=== PATIENT | female | born 1935 | race Caucasian/White ===

== ENCOUNTER 2016-12-24 12:02 | Emergency (ER) | payer OTHER ==
[~2016-12-24] VITALS: Ht 154.9 cm; Wt 84.1 kg
[~2016-12-24 12:02] MED LIST: ASCO500T16 PO; ASPEC325 PO; B-COTAB18 PO; CALCCHW PO; CITA20TA4 PO; HYDC25 PO; LEVO125T72 PO; LOSA1TAB38 PO; METO25TA56 PO; MULT-614 PO; NRV5 PO; OMEG10007 PO; PLV75 PO; PRAV40TA2 PO; PTDOPS OPB; TYLOTC500 PO; ULT50HP PO; VITAMIN E 100 UNIT PO; XNX25 PO
[2016-12-24 12:05] VITALS: TEMP 36.9; Ht 154.9 cm; Wt 84.1 kg
--- NOTE | 2016-12-24 12:20 | EMERGENCY ROOM VISIT NOTE ---
History Report prepared by Sarthak: Dxiie Villavicencio Under the Supervision of: Dr. Lee Mcnamara M.D. First contact with patient: 12:11 Chief Complaint: FALL Stated Complaint: WEAK/SLID TO FLOOR History of Present Illness The patient is a 81 year old female who presents to the Emergency Room for evaluation following a fall that occurred just prior to arrival. The patient states that she was sitting on her bed getting dressed when she fell to the ground. She denies LOC or head injury. The patient lives with her daughter who was home at the time of the fall. EMS was called due to the patient's daughter being unable to pull her up off the ground. The patient states that she was not laying on the floor for a long time. The patient denies abdominal pain, urinary symptoms, blood in urine, stroke like symptoms, or generalized pain. The patient has not fallen recently. Source of History: patient, family Onset: just GENERAL OFFICE ASSISTANT Position: other (global) Quality: other (fall injuries) Timing: constant Associated Symptoms: No LOC, No abdominal pain, No urinary symptoms Review of Systems See HPI for pertinent positives & negatives. A total of 10 systems reviewed and were otherwise negative. Past Medical & Surgical Medical Problems: (1) Stroke Old medical records were reviewed. Nurse's notes were reviewed and I agree with. Renal insufficiency dementia Family History Patient reports no known family medical history. Social History Smoking Status: Current Every Day Smoker Marital Status: Housing Status: lives with family Occupation Status: retired Current/Historical Medications Scheduled Alprazolam (Xanax), 0.25 MG PO BID Amlodipine Besylate (Amlodipine Besylate), 10 MG PO DAILY Ascorbic Acid (Ascorbic Acid), 1,000 MG PO DAILY B-Complex Vitamins (Vitamin B Complex), 1 TAB PO DAILY Calcium Carbonate-Vitamin D W/ (Caltrate 600+D Plus), 1 DOSE PO DAILY Citalopram Hydrobromide (Citalopram Hydrobromide), 20 MG PO DAILY Clopidogrel (Plavix), 75 MG PO DAILY Fish Oil (Geary-3), 1 CAP PO DAILY Hydrochlorothiazide (Hctz), 25 MG PO DAILY Levothyroxine Sodium (Synthroid), 125 MCG PO DAILY Losartan Potassium (Cozaar), 100 MG PO QPM Metoprolol Tartrate (Lopressor) (Lopressor), 25 MG PO BID Multiple Vitamins W/ Minerals (Centrum Silver Ultra Wome), 1 TAB PO DAILY Olopatadine Hydrochloride (Pataday), 1 DROP OPB QAM Pravastatin Sodium (Pravastatin Sodium), 40 MG PO HS Allergies Coded Allergies: Sulfamethoxazole w/Trimethoprim (Verified Allergy, Mild, RASH, 12/24/16) Amoxicillin (Unverified Allergy, Unknown, rash, 12/24/16) Buspirone (Unverified Allergy, Unknown, unk, 12/24/16) Physical Exam Vital Signs Date Time Temp Pulse Resp B/P (MAP) Pulse Ox O2 Delivery O2 Flow Rate FiO2 12/24/16 15:07 63 25 12/24/16 15:02 141/56 12/24/16 14:37 69 17 12/24/16 14:07 62 15 98 12/24/16 14:04 94 Nasal Cannula 2.0 12/24/16 14:02 168/85 12/24/16 13:42 148/77 12/24/16 13:11 95 Nasal Cannula 2.0 12/24/16 13:07 64 88 12/24/16 13:07 66 17 89 12/24/16 13:02 68 17 179/87 90 12/24/16 12:32 63 16 162/78 90 12/24/16 12:21 65 12/24/16 12:06 165/79 12/24/16 12:05 36.9 63 18 165/79 92 Room Air Physical Exam General: Well developed well nourished in no acute distress non ill appearing older female, breathing comfortably on room air. Normal speech HEENT: Normal cephalic atraumatic. Pupils are equal round and reactive to light. Extraocular movements are intact. Oropharynx is pink with moist mucous membranes. No swelling of the mouth lips or tongue. Neck: Supple with a midline trachea. No meningeal signs or stiffness, no JVD or bruits. No Stridor. Chest: Clear to auscultation bilaterally. No wheezes or rhonchi. No increased work of breathing. Heart: regular rate and rhythm. Abdomen: Soft nontender, nondistended without rebound guarding or rigidity. Extremities: No cyanosis clubbing or edema. No calf tenderness or assymetry Spine/Back. Non tender to palpation. No CVA tenderness Skin: Good turgor without rashes. Neurologic exam: Cranial nerves two through 12 are intact. Motor and sensation are intact and symmetrical throughout. Medical Decision & Procedures ER Provider Diagnostic Interpretation: Radiology results as stated below per my review and radiologist interpretation: CT OF THE HEAD WITHOUT CONTRAST CLINICAL HISTORY: Fall. COMPARISON STUDY: Head CT January 15, 2014. CT DOSE: 537.48 mGy.cm TECHNIQUE: Helical axial images of the head were obtained without IV contrast. Automated exposure control was utilized for the study. FINDINGS: No acute intracranial hemorrhage, midline shift or mass effect is present. Ventricular system is stable. Basilar cisterns are patent. There are no extra axial collections. Extensive white matter hypodensity suggests small vessel disease. There may be old lacunar infarcts. There are no findings to suggest acute dural sinus thrombosis or acute territorial infarct. There is bilateral basal ganglia calcification. There is no calvarial fracture. There is mild mucosal thickening of the ethmoid sinuses. IMPRESSION: 1. No acute intracranial findings. 2. No calvarial fracture. Electronically signed by: Tanner Maravilla M.D. 12/24/2016 1:31 PM Dictated Date/Time: 12/24/2016 1:29 PM CHEST ONE VIEW PORTABLE CLINICAL HISTORY: Chest pain. Weakness. COMPARISON STUDY: Chest radiograph January 15, 2014. FINDINGS: There are cholecystectomy clips. Mild elevation of the right hemidiaphragm is unchanged. Right basilar opacity suggests atelectasis. There is no evidence of pulmonary edema. Cardiomegaly is unchanged. There is extensive mitral annular calcification. IMPRESSION: No acute cardiopulmonary findings. No significant change in appearance of the chest. Electronically signed by: Tanner Maravilla M.D. 12/24/2016 1:32 PM Dictated Date/Time: 12/24/2016 1:31 PM Laboratory Results 12/24/16 12:30 Red Blood Count 3.89, Mean Corpuscular Volume 99.0, Mean Corpuscular Hemoglobin 33.2, Mean Corpuscular Hemoglobin Concent 33.5, Mean Platelet Volume 9.4, Neutrophils (%) (Auto) 66.2, Lymphocytes (%) (Auto) 22.1, Monocytes (%) (Auto) 8.4, Eosinophils (%) (Auto) 2.8, Basophils (%) (Auto) 0.2, Neutrophils # (Auto) 5.73, Lymphocytes # (Auto) 1.92, Monocytes # (Auto) 0.73, Eosinophils # (Auto) 0.24, Basophils # (Auto) 0.02 12/24/16 12:30 Test 12/24/16 12:30 12/24/16 12:39 12/24/16 12:50 White Blood Count 8.67 K/uL (4.8-10.8) Red Blood Count 3.89 M/uL (4.2-5.4) Hemoglobin 12.9 g/dL (12.0-16.0) Hematocrit 38.5 % (37-47) Mean Corpuscular Volume 99.0 fL (80-100) Mean Corpuscular Hemoglobin 33.2 pg (25-34) Mean Corpuscular Hemoglobin Concent 33.5 g/dl (32-36) Platelet Count 349 K/uL (130-400) Mean Platelet Volume 9.4 fL (7.4-10.4) Neutrophils (%) (Auto) 66.2 % Lymphocytes (%) (Auto) 22.1 % Monocytes (%) (Auto) 8.4 % Eosinophils (%) (Auto) 2.8 % Basophils (%) (Auto) 0.2 % Neutrophils # (Auto) 5.73 K/uL (1.4-6.5) Lymphocytes # (Auto) 1.92 K/uL (1.2-3.4) Monocytes # (Auto) 0.73 K/uL (0.11-0.59) Eosinophils # (Auto) 0.24 K/uL (0-0.5) Basophils # (Auto) 0.02 K/uL (0-0.2) RDW Standard Deviation 56.6 fL (36.4-46.3) RDW Coefficient of Variation 15.7 % (11.5-14.5) Immature Granulocyte % (Auto) 0.3 % Immature Granulocyte # (Auto) 0.03 K/uL (0.00-0.02) Anion Gap 6.0 mmol/L (3-11) Est Creatinine Clear Calc Drug Dose 32.8 ml/min Estimated GFR () 44.2 Estimated GFR (Non- 38.2 BUN/Creatinine Ratio 21.9 (10-20) Calcium Level 9.5 mg/dl (8.5-10.1) Total Bilirubin 0.5 mg/dl (0.2-1) Direct Bilirubin 0.1 mg/dl (0-0.2) Aspartate Amino Transf (AST/SGOT) 40 U/L (15-37) Alanine Aminotransferase (ALT/SGPT) 32 U/L (12-78) Alkaline Phosphatase 85 U/L (45-117) Total Creatine Kinase 88 U/L (26-192) Creatine Kinase MB 1.5 ng/ml (0.5-3.6) Creatine Kinase MB Ratio 1.7 (0-3.0) Total Protein 7.4 gm/dl (6.4-8.2) Albumin 3.7 gm/dl (3.4-5.0) Lipase 178 U/L (73-393) Bedside Troponin I 0.010 ng/ml (0-0.045) Urine Color DK YELLOW Urine Appearance CLEAR (CLEAR) Urine pH 6.5 (4.5-7.5) Urine Specific Jesse 1.017 (1.000-1.030) Urine Protein 1+ (NEG) Urine Glucose (UA) NEG (NEG) Urine Ketones NEG (NEG) Urine Occult Blood NEG (NEG) Urine Nitrite NEG (NEG) Urine Bilirubin NEG (NEG) Urine Urobilinogen NEG (NEG) Urine Leukocyte Esterase NEG (NEG) Urine WBC (Auto) 1-5 /hpf (0-5) Urine RBC (Auto) 0-4 /hpf (0-4) Urine Hyaline Casts (Auto) 1-5 /lpf (0-5) Urine Epithelial Cells (Auto) 0-5 /lpf (0-5) Urine Bacteria (Auto) NEG (NEG) Laboratory studies as stated above per my review. ECG Indication: other (fall) Rate (beats per minute): 63 Rhythm: normal sinus Findings: LBBB, other (sinus arrhythemia) ED Course 1214: Past medical records reviewed. The patient was evaluated in room B2, and a complete history and physical examination were performed. 1333: The patient's daughter says that she takes care of the patient. The patient has dementia and has been smoking a lot. She thinks rehab at [facility] would help the patient. 1403: The employment evaluator/case manager is arranging for PT/OT evaluation. 1435: PT is at the bedside evaluating the patient. 1454: The patient is resting comfortably and would like some food. PT evaluated the patient. Waiting for OT to evaluate. Medical Decision Differentials include, but are not limited to; trauma, arrhythmia, anemia, infection, electrolyte or metabolic abnormality, rhodomycin. Medication Reconciliation: I attest that I have personally reviewed the patient' s current medication list. Blood pressure Screening: Patient was found to have an elevated blood pressure and was referred to their primary doctor for recheck and further treatment. This patient comes in as described above. She had episode where she fell today there is no injury she just slumped out of the chair and somebody had to come pick her up with Dr. lawson and she is concerned that she is more weak than usual lately. The patient denies any complaints other the daughter says she does have a degree of dementia as well. The patient denies any chest pain shortness breath or fever. She has no focal neurologic deficits. IV access established and blood work was obtained. CAT scan of her head is unremarkable. She's had no acute intracranial process seen. She has no acute electrolyte or metabolic abnormalities. She's nothing to suggest acute coronary syndrome or significant arrhythmia. She is nothing to suggest stroke. Daughter is asking if we could get her into [facility] for rehabilitation in the short- term. We did have PT and OT consulted. She was seen by PT and OT in the ER and is going to be sent home and likely admitted by [facility] tomorrow. The daughter is happy with the plan Impression Primary Impression: Weakness Additional Impressions: Fall Ambulatory dysfunction Scribe Attestation The scribe's documentation has been prepared under my direction and personally reviewed by me in its entirety. I confirm that the note above accurately reflects all work, treatment, procedures, and medical decision making performed by me. Departure Information Referrals David Dumont M.D. (PCP) Patient Instructions [facility] Problem Qualifiers
[2016-12-24 12:51] LABS: BASO % 0.2 %; BASO ABS # 0.02 K/uL (0-0.2); COMPLETE YES; EOS % 2.8 %; HEMATOCRIT 38.5 % (37-47); IG% 0.3 %; LYMPH % 22.1 %; LYMPH ABS # 1.92 K/uL (1.2-3.4); MEAN CORPUSCULAR HEMOGLOBIN 33.2 pg (25-34); MEAN CORPUSCULAR HGB CONC 33.5 g/dl (32-36); MEAN PLATELET VOLUME 9.4 fL (7.4-10.4); MONO % 8.4 %; NEUT % 66.2 %; PLATELET COUNT 349 K/uL (130-400); RED BLOOD COUNT 3.89 M/uL (4.2-5.4); WHITE BLOOD COUNT 8.67 K/uL (4.8-10.8)
[2016-12-24 13:10] LABS: BUN/CREATININE RATIO 21.9 (10-20); CALCIUM 9.5 mg/dl (8.5-10.1); CREATININE 1.3 mg/dl (0.60-1.20); POTASSIUM 4.4 mmol/L (3.5-5.1)
[2016-12-24 13:15] LABS: CKMB/CK RATIO 1.7 (0-3.0)
[2016-12-24 13:30] LABS: URINE APPEARANCE CLEAR (CLEAR); URINE BILIRUBIN NEG (NEG); URINE COLOR DK YELLOW; URINE EPITHELIAL CELL AUTO 0-5 /lpf (0-5); URINE NITRITE NEG (NEG); URINE PH 6.5 (4.5-7.5); URINE SPECIFIC GRAVITY 1.017 (1.000-1.030); UROBILINOGEN NEG (NEG)
[2016-12-24 13:32] LABS: MANUAL MICROSCOPIC REQUIRED? NO; REVIEW REQ? NO
--- NOTE | 2016-12-24 13:33 | DIAGNOSTIC IMAGING REPORT ---
CT OF THE HEAD WITHOUT CONTRAST CLINICAL HISTORY: Fall. COMPARISON STUDY: Head CT January 15, 2014. CT DOSE: 537.48 mGy.cm TECHNIQUE: Helical axial images of the head were obtained without IV contrast. Automated exposure control was utilized for the study. FINDINGS: No acute intracranial hemorrhage, midline shift or mass effect is present. Ventricular system is stable. Basilar cisterns are patent. There are no extra axial collections. Extensive white matter hypodensity suggests small vessel disease. There may be old lacunar infarcts. There are no findings to suggest acute dural sinus thrombosis or acute territorial infarct. There is bilateral basal ganglia calcification. There is no calvarial fracture. There is mild mucosal thickening of the ethmoid sinuses. IMPRESSION: 1. No acute intracranial findings. 2. No calvarial fracture. Electronically signed by: Tanner Maravilla M.D. 12/24/2016 1:31 PM Dictated Date/Time: 12/24/2016 1:29 PM
--- NOTE | 2016-12-24 13:34 | DIAGNOSTIC IMAGING REPORT ---
CHEST ONE VIEW PORTABLE CLINICAL HISTORY: Chest pain. Weakness. COMPARISON STUDY: Chest radiograph January 15, 2014. FINDINGS: There are cholecystectomy clips. Mild elevation of the right hemidiaphragm is unchanged. Right basilar opacity suggests atelectasis. There is no evidence of pulmonary edema. Cardiomegaly is unchanged. There is extensive mitral annular calcification. IMPRESSION: No acute cardiopulmonary findings. No significant change in appearance of the chest. Electronically signed by: Tanner Maravilla M.D. 12/24/2016 1:32 PM Dictated Date/Time: 12/24/2016 1:31 PM
[2016-12-24 14:04] VITALS: O2SAT 94
[2016-12-24] MEDS ORDERED: ALPR0.25 PO (14:30)
[2016-12-24] MEDS ORDERED: CLOP1TAB15 PO (14:30)
[2016-12-24] MEDS ORDERED: HYDR25TA4 PO (14:30)
[2016-12-24 17:07] VITALS: BP 185/78; PULSE 76; O2SAT 95
== END 2016-12-24 17:08 | disposition home or self-care (01) ==
LOC: EDBD 12:02 → C.EDB 12:05
DX: R53.1 Weakness (principal); R26.2 Difficulty in walking, not elsewhere classified; W19.XXXA Unspecified fall, initial encounter; F03.90 Unspecified dementia, unspecified severity, without behavioral disturbance, psychotic disturbance, mood disturbance, and anxiety; F17.200 Nicotine dependence, unspecified, uncomplicated; Z82.3 Family history of stroke; Z79.899 Other long term (current) drug therapy; Z88.1 Allergy status to other antibiotic agents; Z88.2 Allergy status to sulfonamides; Z88.8 Allergy status to other drugs, medicaments and biological substances

== ENCOUNTER → 2017-02-05 | Outpatient (CLI) | payer OTHER ==
[~2017-02-05] MED LIST changes: +ALPR0.25 PO; -ASPEC325 PO; +CLOP1TAB15 PO; -HYDC25 PO; +HYDR25TA4 PO; -PLV75 PO; -TYLOTC500 PO; -ULT50HP PO; -VITAMIN E 100 UNIT PO; -XNX25 PO
[2017-02-05 10:13] LABS: BASO % 0.7 %; BASO ABS # 0.05 K/uL (0-0.2); COMPLETE YES; EOS % 4.8 %; HEMATOCRIT 36.8 % (37-47); IG% 0.1 %; LYMPH % 27.6 %; LYMPH ABS # 1.85 K/uL (1.2-3.4); MEAN CELL VOLUME 98.1 fL (80-100); MEAN CORPUSCULAR HEMOGLOBIN 31.7 pg (25-34); MEAN CORPUSCULAR HGB CONC 32.3 g/dl (32-36); MEAN PLATELET VOLUME 10.3 fL (7.4-10.4); MONO % 9.8 %; PLATELET COUNT 316 K/uL (130-400); RED BLOOD COUNT 3.75 M/uL (4.2-5.4); WHITE BLOOD COUNT 6.71 K/uL (4.8-10.8)
[2017-02-05 10:20] LABS: ALT/SGPT 17 U/L (12-78); BLOOD UREA NITROGEN 29 mg/dl (7-18); BUN/CREATININE RATIO 24.1 (10-20); CALCIUM 9.7 mg/dl (8.5-10.1); CARBON DIOXIDE 29 mmol/L (21-32); CHLORIDE 107 mmol/L (98-107); GLUCOSE 89 mg/dl (70-99); POTASSIUM 3.9 mmol/L (3.5-5.1); SODIUM 142 mmol/L (136-145)
[2017-02-05 10:31] LABS: ALB/GLOB RATIO 0.8 (0.9-2); ALKALINE PHOSPHATASE 72 U/L (45-117); AST/SGOT 18 U/L (15-37); THYROID STIMULATING HORMONE 0.066 uIu/ml (0.300-4.500)
--- NOTE | 2017-02-14 06:56 | CODING QUERY MEDICAL NECESSITY ---
CQSUPPORTING DIAGNOSIS NEEDED A supporting diagnosis is required for the test/procedure performed on this patient in order for us to be reimbursed by the patient's insurance. Please provide a supporting diagnosis for the following test/procedure listed below next to the test name along with your signature. *If there is no additional diagnosis for this patient that would support the following test/procedure please document that below next to the test/procedure. Test(s)/Procedure(s) that require a supporting diagnosis: DOS 02/05/17 VITAMIN D TEST VITAMIN B12 TEST Provider Signature: Date: Thank you Mone [facility] Information Management Once completed, please kindly fax back to [phone] For questions please call [phone]
== END ==
LOC: C.LABCC 09:01
PROVIDERS: ATTEND Internal Medicine
DX: D64.9 Anemia, unspecified (principal); E55.9 Vitamin D deficiency, unspecified

== ENCOUNTER → 2017-02-20 | Outpatient (CLI) | payer OTHER ==
[2017-02-21 03:57] LABS: URINE APPEARANCE CLEAR (CLEAR); URINE BILIRUBIN NEG (NEG); URINE COLOR YELLOW; URINE NITRITE NEG (NEG); UROBILINOGEN NEG (NEG); ZZUR CULT IF INDIC CLEAN CATCH NO
[2017-02-21 04:03] LABS: MANUAL MICROSCOPIC REQUIRED? NO; REVIEW REQ? NO
== END ==
LOC: C.LABCC 11:27
PROVIDERS: ATTEND Internal Medicine
DX: R41.0 Disorientation, unspecified (principal); R30.0 Dysuria; R35.0 Frequency of micturition

== ENCOUNTER → 2017-03-08 | Outpatient (CLI) | payer OTHER ==
[2017-03-08 08:41] LABS: THYROID STIMULATING HORMONE 0.047 uIu/ml (0.300-4.500)
== END ==
LOC: C.LABCC 08:02
PROVIDERS: ATTEND Internal Medicine
DX: E03.9 Hypothyroidism, unspecified (principal)

== ENCOUNTER → 2017-04-08 | Outpatient (CLI) | payer OTHER ==
[2017-04-08 10:28] LABS: THYROID STIMULATING HORMONE 0.278 uIu/ml (0.300-4.500)
== END ==
LOC: C.LABCC 09:04
PROVIDERS: ATTEND Internal Medicine
DX: E03.9 Hypothyroidism, unspecified (principal)

== ENCOUNTER → 2017-04-15 | Outpatient (CLI) | payer OTHER ==
[2017-04-15 18:04] LABS: URINE APPEARANCE CLOUDY (CLEAR); URINE BILIRUBIN NEG (NEG); URINE COLOR YELLOW; URINE EPITHELIAL CELL AUTO >30 /lpf (0-5); URINE NITRITE POS (NEG); URINE PH 6.5 (4.5-7.5); URINE SPECIFIC GRAVITY 1.018 (1.000-1.030); UROBILINOGEN NEG (NEG)
[2017-04-15 18:09] LABS: MANUAL MICROSCOPIC REQUIRED? NO; REVIEW REQ? YES
== END | disposition home or self-care (01) ==
LOC: C.LABCC 17:22
PROVIDERS: ATTEND Internal Medicine
DX: R30.0 Dysuria (principal)

== ENCOUNTER → 2017-04-17 | Outpatient (CLI) | payer OTHER ==
[2017-04-17 18:00] LABS: URINE APPEARANCE CLOUDY (CLEAR); URINE BILIRUBIN NEG (NEG); URINE COLOR YELLOW; URINE NITRITE POS (NEG); URINE PH >= 9.0 (4.5-7.5); URINE SPECIFIC GRAVITY 1.017 (1.000-1.030); UROBILINOGEN NEG (NEG)
[2017-04-17 19:10] LABS: MANUAL MICROSCOPIC REQUIRED? YES; REVIEW REQ? NO; SULFASALICYLIC ACID POS (NEG)
[2017-04-17 19:14] LABS: URINE AMORPHOUS SEDIMENT PRESENT (NONE PRSENT); URINE BACTERIA 4+ (NEG); URINE MUCUS PRESENT (NONE PRSENT); URINE RBC 0-4 /hpf (0-4)
== END ==
LOC: C.LABCC 17:35
PROVIDERS: ATTEND Internal Medicine
DX: R82.90 Unspecified abnormal findings in urine (principal)

== ENCOUNTER → 2017-05-04 | Outpatient (CLI) | payer OTHER ==
[2017-05-04 18:00] LABS: URINE APPEARANCE CLEAR (CLEAR); URINE BILIRUBIN NEG (NEG); URINE COLOR YELLOW; URINE NITRITE NEG (NEG); URINE SPECIFIC GRAVITY 1.023 (1.000-1.030); UROBILINOGEN NEG (NEG); ZZURINE CULT IF INDIC CATH NO
[2017-05-04 18:01] LABS: MANUAL MICROSCOPIC REQUIRED? NO; REVIEW REQ? NO
== END ==
LOC: C.LABCC 11:56
PROVIDERS: ATTEND Internal Medicine
DX: R30.0 Dysuria (principal); R41.82 Altered mental status, unspecified

== ENCOUNTER → 2017-05-06 | Outpatient (CLI) | payer OTHER ==
[2017-05-06 09:59] LABS: BASO % 0.9 %; BASO ABS # 0.07 K/uL (0-0.2); COMPLETE YES; EOS % 4.2 %; HEMATOCRIT 34.5 % (37-47); IG% 0.3 %; LYMPH % 24.5 %; LYMPH ABS # 1.85 K/uL (1.2-3.4); MEAN CELL VOLUME 94.5 fL (80-100); MEAN CORPUSCULAR HEMOGLOBIN 30.7 pg (25-34); MEAN CORPUSCULAR HGB CONC 32.5 g/dl (32-36); MEAN PLATELET VOLUME 10.3 fL (7.4-10.4); MONO % 9.3 %; NEUT % 60.8 %; PLATELET COUNT 283 K/uL (130-400); RED BLOOD COUNT 3.65 M/uL (4.2-5.4); WHITE BLOOD COUNT 7.54 K/uL (4.8-10.8)
[2017-05-06 10:15] LABS: BLOOD UREA NITROGEN 31 mg/dl (7-18); BUN/CREATININE RATIO 24.6 (10-20); CALCIUM 9.3 mg/dl (8.5-10.1); CARBON DIOXIDE 29 mmol/L (21-32); CHLORIDE 105 mmol/L (98-107); CREATININE 1.27 mg/dl (0.60-1.20); GLUCOSE 87 mg/dl (70-99); POTASSIUM 3.9 mmol/L (3.5-5.1); SODIUM 140 mmol/L (136-145)
== END ==
LOC: C.LABCC 09:12
PROVIDERS: ATTEND Internal Medicine
DX: R30.0 Dysuria (principal); R41.82 Altered mental status, unspecified

== ENCOUNTER → 2017-05-09 | Outpatient (CLI) | payer OTHER | END | disposition home or self-care (01) | LOC: C.LABCC 08:59 | PROVIDERS: ATTEND Internal Medicine | DX: E03.9 Hypothyroidism, unspecified (principal) ==

== ENCOUNTER → 2017-06-05 | Outpatient (CLI) | payer OTHER ==
[2017-06-05 09:24] LABS: ALT/SGPT 15 U/L (12-78); BLOOD UREA NITROGEN 45 mg/dl (7-18); BUN/CREATININE RATIO 34.7 (10-20); CALCIUM 9.4 mg/dl (8.5-10.1); CARBON DIOXIDE 28 mmol/L (21-32); CHLORIDE 104 mmol/L (98-107); CHOLESTEROL 167 mg/dl (0-200); CREATININE 1.29 mg/dl (0.60-1.20); GLUCOSE 84 mg/dl (70-99); POTASSIUM 4.4 mmol/L (3.5-5.1); SODIUM 139 mmol/L (136-145); TRIGLYCERIDES 83 mg/dl (0-150); VERY LOW DENSITY LIPOPROT CALC 17 mg/dl
[2017-06-05 09:27] LABS: ALB/GLOB RATIO 0.9 (0.9-2); ALKALINE PHOSPHATASE 130 U/L (45-117); AST/SGOT 17 U/L (15-37); CHOLESTEROL/HDL RATIO 2.2; HDL CHOLESTEROL 76 mg/dl; LDL CHOLESTEROL CALCULATED 74 mg/dl
== END ==
LOC: C.LABCC 08:49
PROVIDERS: ATTEND Internal Medicine
DX: N18.3 Chronic kidney disease, stage 3 (moderate) (principal); I25.10 Atherosclerotic heart disease of native coronary artery without angina pectoris

== ENCOUNTER → 2017-06-21 | Outpatient (CLI) | payer OTHER ==
[2017-06-21 09:09] LABS: THYROID STIMULATING HORMONE 3.78 uIu/ml (0.300-4.500)
== END ==
LOC: C.LABCC 08:25
PROVIDERS: ATTEND Internal Medicine
DX: E03.9 Hypothyroidism, unspecified (principal)

== ENCOUNTER → 2017-10-07 | Outpatient (CLI) | payer OTHER | LOC: C.LABCC 08:02 | PROVIDERS: ATTEND Internal Medicine | DX: R63.5 Abnormal weight gain (principal) ==

== ENCOUNTER → 2017-10-18 | Outpatient (CLI) | payer OTHER | LOC: C.LABCC 16:47 | PROVIDERS: ATTEND Internal Medicine | DX: R82.90 Unspecified abnormal findings in urine (principal) ==

== ENCOUNTER → 2017-10-19 | Outpatient (CLI) | payer OTHER | LOC: C.LABCC 10:01 | PROVIDERS: ATTEND Internal Medicine | DX: R82.90 Unspecified abnormal findings in urine (principal); R41.82 Altered mental status, unspecified ==

== ENCOUNTER → 2017-11-19 | Outpatient (CLI) | payer OTHER | LOC: C.LABCC 08:15 | PROVIDERS: ATTEND Internal Medicine | DX: E03.9 Hypothyroidism, unspecified (principal) ==